=== PATIENT | female | born 1955 | race African-American/Black ===

== ENCOUNTER 2018-05-11 07:57 | Emergency (ER) | payer MEDICARE, OTHER ==
[~2018-05-11] VITALS: Ht 152.4 cm; Wt 59.0 kg
[2018-05-11 07:57] VITALS: BP 186/88
[~2018-05-11 07:57] MED LIST: ACET-6134 GT; ALUM360S96 GT; ALUM360S96 PO; ASPI325T49 PO; BACL10TA4 GT; BISA10SU1 RC; CHLOR MM; CHOL100037 GT; DOCU-299 GT; KEP500L GT; LACT10SO11 GT; LISI10TA11 GT; MAGN400S60 GT; MEDI30SO GT; METO25TA GT; MULT15LI1 GT; NA P135N9 RC; NITR0.4T2 SL; SIMV40TA1 GT; [UNRECOGNIZED DRUG - CODE] GT
--- NOTE | 2018-05-11 07:57 | NUR ---
patient came in by [facility]
[2018-05-11] MEDS ORDERED: NACL 0.9% 1,000 ML IV SCH (08:01)
[2018-05-11] MEDS ORDERED: diphenhydrAMINE 50 MG/ML VIAL IVP ONE (08:05)
[2018-05-11] MEDS ORDERED: DEXAMETHASONE 10 MG/ML VIAL IVP ONE (08:05)
--- NOTE | 2018-05-11 08:20 | NUR ---
PATIENT CAME IN BY [facility] SEIZURES. PATIENT DOES NOT RESOND WHEN SPOKEN TO. PT CAME FROM AN EXTENDED CARE FACILITY. PATIENTS LUNGS WERE CLEAR BILATERALLY. ABDOMEN SEEMED TO BE HARD AND DISTENDED. BOWL SOUNDS ARE ACTIVE IN ALL 4 QUADRANTS. PATIENT IS INCONTINENT AND WAS BROUGHT IN WEARING A DIAPER. PATIENT HAS CONTRACTIONS TO BOTH LEGS. PATEINT HAS A HISTORY OF HTN, DYSPHASIA, OSTEOPOROSIS, MS, CYSTIC KIDNEY DISEASE, G TUBE, OSTEOMYOELITIS, OK AND SEIZURES. PATIENT IS RESTING IN BED WITH EYES CLOSED. PT MOVES HER LEFT LEG FROM SIDE TO SIDE.
--- NOTE | 2018-05-11 08:21 | NUR ---
PATEINTS JACKIENE IS NON VERBAL COMMUNICATION AND DOES NOT ABULATE DUE TO HISTORY OF MUSCLE CONTRACTIONS. GTUBE WAS ASSESSED AND WAS CLEAN AND INTACT. NO REDNESS AND OR SWELLING TO SITE.
--- NOTE | 2018-05-11 08:25 | NUR ---
ASSESSED PATIENTS ASKIN AND NO SIGN OF BED ULCERS/ DECUBITIS NO REDNESS OR SWELLING. SKIN INTACT
--- NOTE | 2018-05-11 08:35 | NUR ---
PT WENT TO CT
[2018-05-11 08:42] LABS: BASOPHILS % (AUTO) 0.3 % (0.0-2.0); EOSINOPHILS % (AUTO) 0.2 % (0.0-4.0); HEMATOCRIT 39.6 % (36-48); HEMOGLOBIN 13.2 g/dL (12.0-16.0); LYMPHOCYTES % (AUTO) 13.5 % (20.5-51.1); MEAN CORPUSCULAR HEMOGLOBIN 30 pg (27-31); MEAN CORPUSCULAR HGB CONC 34 g/dL (33-37); MEAN CORPUSCULAR VOLUME 89.4 fL (80-94); MONOCYTES # (AUTO) 0.2 K/uL (0.8-1.0); MONOCYTES % (AUTO) 2.6 % (1.7-9.3); NEUTROPHILS # (AUTO) 6.3 K/uL (1.8-7.7); NEUTROPHILS % (AUTO) 83.4 % (42.2-75.2); PLATELET COUNT (AUTO) 394 K/uL (140-450); RED BLOOD CELL COUNT(AUTO) 4.42 MIL/uL (4.20-5.40); RED CELL DISTRIBUTION WIDTH 13.2 % (11.6-13.7); WHITE BLOOD COUNT (AUTO) 7.6 K/uL (4.8-10.8)
[2018-05-11 08:53] LABS: ANION GAP 9.5 (8-16); CARBON DIOXIDE 30.6 mmol/L (21-32); CREATININE 0.7 mg/dL (0.6-1.3); POTASSIUM 3.1 mmol/L (3.5-5.1)
[2018-05-11 08:54] LABS: PROTHROMBIN TIME 11.8 secs (10.8-13.4)
[2018-05-11 08:59] LABS: ALBUMIN 2.7 g/dL (3.4-5.0); TOTAL BILIRUBIN 0.2 mg/dL (0.0-1.0)
--- NOTE | 2018-05-11 09:05 | NUR ---
PATIENT WAS STRAGHT CATH FOR A U/A SAMPLE. PATEINT TOLERATED WELL.
--- NOTE | 2018-05-11 10:19 | NUR ---
comfort measures were implemented. was turned and a pillow was put inbetween her legs for comfort. patient is resting
--- NOTE | 2018-05-11 10:21 | NUR ---
seizure pads were put up on both rails for safety precaution
[2018-05-11] MEDS ORDERED: POTASSIUM CHL 20 MEQ / DEXT 5% 1,000 ML IV ONE (10:30)
[2018-05-11] MEDS ORDERED: MAG SULF 2000 MG/WATER PREMIX 50 ML IV ONE (10:30)
[2018-05-11 10:49] LABS: APPEARANCE,URINE TURBID (CLEAR); BILIRUBIN,URINE NEGATIVE (NEGATIVE); COLOR,URINE YELLOW (YELLOW); LEUKOCYTE ESTERASE ,URINE 3+ (NEGATIVE); NITRITE, URINE NEGATIVE (NEGATIVE); PH,URINE >=9.0 (5.0-9.0); UGLUCOSE NEGATIVE (NEGATIVE)
[2018-05-11 10:52] LABS: BLOOD, URINE 1+ (NEGATIVE); RBC,URINE 3-10 (FEW) /HPF (0-5)
[2018-05-11 10:53] LABS: WBC,URINE 20-60 /HPF (0-5)
[2018-05-11 10:54] LABS: CALCIUM OXALATE CRYSTALS,UR 0-10 /HPF (None Seen)
--- NOTE | 2018-05-11 11:37 | NUR ---
STARTED MAG. PATIENT IS SLEEPING. VITALS ARE WITHIN BASELINE AND PT IS NONVERBAL WHEN EXPLAINED PROCEDURE AND MEDICATION.
[2018-05-11] MEDS ORDERED: levETIRAcetam 100 MG/ML ORASYR GT SCH (12:00)
[2018-05-11] MEDS ORDERED: POTASSIUM CHLORIDE 10 MEQ TABER PO ONE (12:00)
[2018-05-11] MEDS ORDERED: PHENYTOIN 100 MG CAPER PO ONE (12:05)
--- NOTE | 2018-05-11 14:27 | NUR ---
PATIENT CAME IN WITH COMPLAIN OF CHEST PAIN AND ITCHING DUE TO RASH ALL OVER BODY. PATIENT HAS HAD PAIN TO CHEST FOR 4 DAYS. PATIENT STATED THAT HE ATE RAW FISH 4 DAYS AGO. THE PAIN IS LOCALIZED TO THE EPIGASTRIC REGION AND IS NON RADIATING. PATIENT JORGE NO ALLERGIES AND NO PRIOR MEDICAL HISTORY. THE PATIENT DISCRIBES HIS PAIN ASDULL AND BURNING SENSATION. LUNG SOUNDS ARE NORMAL AND CLEAR BILATERALLY. PATEINT SPEAKS LITTLE ARMENIAN. HIS PRIMARY LANGUAGE IS Divvyshot. PATIENT IS SITTING IN BED CALM WITH HIS FAMILYAT BED SIDE. PA WAS ABLE TO TRANSLATE.
--- NOTE | 2018-05-11 15:39 | NUR ---
PATIENT OPENED HER EYES WHILE I WAS SPEAKING TO HER. TURNED HER. SKIN IS INTACT AND NO REDNESS UPON ASSESSMENT.
[2018-05-11 18:46] VITALS: BP 134/80
--- NOTE | 2018-05-11 18:48 | NUR ---
Patient discharged with v/s stable. Written and verbal after care instructions given and explained. Patient verbalized understanding. Ambulance Transport with to long-term. All questions addressed prior to discharge. Advised to follow up with PMD.Gave report to the admition nurse at the nursing facility.
== END 2018-05-11 14:30 | disposition home or self-care (01) ==
LOC: MED 07:57
DX: R56.9 Unspecified convulsions (principal); E86.0 Dehydration; G35 Multiple sclerosis; Z66 Do not resuscitate; I25.2 Old myocardial infarction; I10 Essential (primary) hypertension; Z86.73 Personal history of transient ischemic attack (TIA), and cerebral infarction without residual deficits
CPT/HCPCS: 36415; 70450; 71045; 80053; 80173; 80185; 81001; 82550; 83605; 83735; 84484; 85025; 85610; 85730; 87040; 87086; 87186; 93005; 96361; 96374; 96375; 99285; J1100; J1200; J3475; J7030; Q0092

== ENCOUNTER 2018-06-01 21:06 | Emergency (ER) | payer MEDICARE, OTHER ==
[~2018-06-01] VITALS: Ht 167.6 cm; Wt 77.1 kg
[2018-06-01 21:06] VITALS: BP 182/110
--- NOTE | 2018-06-01 21:06 | NUR ---
Patient BIBA ACLS from [facility], transferred to bed 12. RN evaluating patient at bedside.
--- NOTE | 2018-06-01 21:14 | NUR ---
63/F BIBA FROM [facility]. PER EMS, PT HAD FOCAL SEIZURE, MOSTLY FACE AND L ARM. ATIVAN 2MG IM GIVEN PER FACILITY. PT IS AWAKE, RESPONSIVE, APHASIC, BEDBOUND WITH CONTRACTURES AT BASELINE. PT ABLE TO OPEN EYES TO PAIN, APHASIC, BEDBOUND WITH CONTRACTURES AT THIS TIME. SKIN IS INTACT, PINK/WARM/DRY; SPO2 100% ON 10L NONREBREATHER AT THIS TIME, RR 24 EVEN AND UNLABORED. BL LUNG SOUNDS DIMINISHED. RECTAL TEMP 99.8 AT THIS TIME. BP 199/101, HR 100. GTUBE NOTED. PATIENT POSITIONED FOR COMFORT; SEIZURE PADS PLACED. PT PLACED ON MONITOR. HOB ELEVATED; BEDRAILS UP X2; BED DOWN. ER MD MADE AWARE.
[2018-06-01] MEDS ORDERED: ASPI81CT89 PEG (21:31)
[2018-06-01] MEDS ORDERED: LORA-476 IM (21:31)
[2018-06-01] MEDS ORDERED: KEP500L GT (21:31)
--- NOTE | 2018-06-01 21:43 | NUR ---
VS NOTED. SPO2 100% ON O2 2L NC, RR 22 EVEN AND UNLABORED, BP 179/95, HR 95.
[2018-06-01] MEDS ORDERED: levETIRAcetam 1,500 MG in NACL 0.9% 100 ML IV ONE (22:05)
[2018-06-01] MEDS ORDERED: levETIRAcetam 100 MG/ML VIAL IV ONE (22:08)
[2018-06-01 23:23] LABS: BASOPHILS % (AUTO) 0.2 % (0.0-2.0); EOSINOPHILS % (AUTO) 0.1 % (0.0-4.0); HEMOGLOBIN 13.7 g/dL (12.0-16.0); LYMPHOCYTES # (AUTO) 0.9 K/uL (2.5-16.5); LYMPHOCYTES % (AUTO) 11.7 % (20.5-51.1); MEAN CORPUSCULAR HEMOGLOBIN 30 pg (27-31); MEAN CORPUSCULAR HGB CONC 34 g/dL (33-37); MEAN CORPUSCULAR VOLUME 87.2 fL (80-94); MONOCYTES # (AUTO) 0.2 K/uL (0.8-1.0); MONOCYTES % (AUTO) 3.1 % (1.7-9.3); NEUTROPHILS # (AUTO) 6.8 K/uL (1.8-7.7); NEUTROPHILS % (AUTO) 84.9 % (42.2-75.2); PLATELET COUNT (AUTO) 275 K/uL (140-450); RED BLOOD CELL COUNT(AUTO) 4.58 MIL/uL (4.20-5.40); RED CELL DISTRIBUTION WIDTH 13.9 % (11.6-13.7); WHITE BLOOD COUNT (AUTO) 8.1 K/uL (4.8-10.8)
[2018-06-01 23:33] LABS: ANION GAP 11.7 (8-16); CARBON DIOXIDE 27.6 mmol/L (21-32); CREATININE 0.7 mg/dL (0.6-1.3); POTASSIUM 3.3 mmol/L (3.5-5.1)
[2018-06-01 23:40] LABS: TOTAL BILIRUBIN 0.2 mg/dL (0.0-1.0)
[2018-06-01 23:41] LABS: ALBUMIN 2.8 g/dL (3.4-5.0)
[2018-06-01 23:42] LABS: APPEARANCE,URINE CLOUDY (CLEAR); BILIRUBIN,URINE NEGATIVE (NEGATIVE); BLOOD, URINE NEGATIVE (NEGATIVE); COLOR,URINE YELLOW (YELLOW); LEUKOCYTE ESTERASE ,URINE TRACE (NEGATIVE); NITRITE, URINE NEGATIVE (NEGATIVE); UGLUCOSE NEGATIVE (NEGATIVE)
[2018-06-01 23:49] LABS: RBC,URINE 0-5 (RARE) /HPF (0-5)
[2018-06-01 23:50] LABS: TRIPLE PHOSPHATE CRYSTAL,UR 0-10 /HPF (None Seen); WBC,URINE 6-15 (FEW) /HPF (0-5)
--- NOTE | 2018-06-02 00:16 | NUR ---
PT SLEEPING COMFORTABLY, RR EVEN AND UNLABORED. ALL NEEDS MET AT THIS TIME.
[2018-06-02] MEDS ORDERED: cefTRIAXone 1,000 MG VIAL ONE (00:32)
[2018-06-02] MEDS ORDERED: PHENYTOIN 1,000 MG in NACL 0.9% 100 ML IV ONE (01:00)
[2018-06-02] MEDS ORDERED: PHENYTOIN 250 MG/5 ML VIAL IV ONE (01:05)
--- NOTE | 2018-06-02 02:12 | NUR ---
Patient to be transferred to [facility], room 337. Is being transferred due to SEIZURE. Receiving facility has accepting physician and available space. ER physician has signed transfer form. Patient or responsible libertarian has agreed to transfer and signed form. Patient belongings inventoried and will be sent with patient. Copy of nursing notes, lab reports, EKG, Physicians Orders and X-rays to be sent with patient. Report called to DEDE GIBBS at receiving facility. [facility] ambulance service at bedside.
--- NOTE | 2018-06-02 02:21 | NUR ---
PT PICKED UP BY [facility] TO [facility]. VSS, CONDITION STABLE.
[2018-06-02 02:23] VITALS: BP 133/62
[2018-06-02] MEDS ORDERED: levETIRAcetam 1,500 MG in NACL 0.9% 100 ML IV SCH (09:00)
== END 2018-06-02 02:21 | disposition short-term general hospital (02) ==
LOC: MED 21:06
DX: R56.9 Unspecified convulsions (principal); N39.0 Urinary tract infection, site not specified; I25.2 Old myocardial infarction; I10 Essential (primary) hypertension; Z86.73 Personal history of transient ischemic attack (TIA), and cerebral infarction without residual deficits
CPT/HCPCS: 36415; 71045; 80053; 80185; 81001; 85025; 87086; 96365; 96367; 99285; C1758; J0696; J1165; J1953; J7060

== ENCOUNTER 2019-06-19 00:17 | Emergency (ER) | payer MEDICARE, OTHER ==
[~2019-06-19] VITALS: Ht 157.5 cm; Wt 68.0 kg
[~2019-06-19 00:17] MED LIST changes: -ALUM360S96 GT; -ALUM360S96 PO; +ASPI-1718 PEG; -ASPI325T49 PO; +LORA-476 IM; -MEDI30SO GT; -NA P135N9 RC; -NITR0.4T2 SL
[2019-06-19 00:29] VITALS: BP 200/98
[2019-06-19] MEDS ORDERED: NACL 0.9% 500 ML IV SCH (00:36)
[2019-06-19 01:15] LABS: BASOPHILS % (AUTO) 0.2 % (0.0-2.0); EOSINOPHILS % (AUTO) 0.1 % (0.0-4.0); HEMATOCRIT 44.4 % (36-48); HEMOGLOBIN 14.9 g/dL (12.0-16.0); LYMPHOCYTES % (AUTO) 11.2 % (20.5-51.1); MEAN CORPUSCULAR HEMOGLOBIN 31 pg (27-31); MEAN CORPUSCULAR HGB CONC 34 g/dL (33-37); MONOCYTES # (AUTO) 0.5 K/uL (0.8-1.0); MONOCYTES % (AUTO) 5.6 % (1.7-9.3); NEUTROPHILS # (AUTO) 7.6 K/uL (1.8-7.7); NEUTROPHILS % (AUTO) 82.9 % (42.2-75.2); PLATELET COUNT (AUTO) 180 K/uL (140-450); RED BLOOD CELL COUNT(AUTO) 4.88 MIL/uL (4.20-5.40)
[2019-06-19 01:16] LABS: WHITE BLOOD COUNT (AUTO) 9.1 K/uL (4.8-10.8)
[2019-06-19 01:27] LABS: ANION GAP 9.9 (8-16); CARBON DIOXIDE 29.2 mmol/L (21-32); CREATININE 0.6 mg/dL (0.6-1.3); POTASSIUM 3.1 mmol/L (3.5-5.1)
[2019-06-19] MEDS ORDERED: POTASSIUM CHLORIDE 20% 40 MEQ/15 ML UDC PO ONE (01:30)
[2019-06-19 01:33] LABS: PROTHROMBIN TIME 10.7 secs (10.8-13.4)
[2019-06-19 01:34] LABS: ALBUMIN 3.1 g/dL (3.4-5.0); TOTAL BILIRUBIN 0.3 mg/dL (0.0-1.0)
[2019-06-19 01:38] LABS: APPEARANCE,URINE CLOUDY (CLEAR); BILIRUBIN,URINE NEGATIVE (NEGATIVE); BLOOD, URINE 1+ (NEGATIVE); COLOR,URINE YELLOW (YELLOW); LEUKOCYTE ESTERASE ,URINE 1+ (NEGATIVE); NITRITE, URINE POSITIVE (NEGATIVE); UGLUCOSE NEGATIVE (NEGATIVE)
[2019-06-19 01:51] LABS: WBC,URINE 20-60 /HPF (0-5)
[2019-06-19] MEDS ORDERED: PHENYTOIN 1,000 MG in NACL 0.9% 100 ML IV ONE (02:00)
[2019-06-19] MEDS ORDERED: LEVOFLOXACIN 500 MG/D5W PREMIX 100 ML IV ONE (02:00)
[2019-06-19] MEDS ORDERED: PHENYTOIN 250 MG/5 ML VIAL IV ONE (03:11)
[2019-06-19 06:00] VITALS: BP 152/66
== END 2019-06-19 06:30 ==
LOC: MED 00:17
DX: G40.909 Epilepsy, unspecified, not intractable, without status epilepticus (principal); N39.0 Urinary tract infection, site not specified; I25.2 Old myocardial infarction; I10 Essential (primary) hypertension; Z86.73 Personal history of transient ischemic attack (TIA), and cerebral infarction without residual deficits; Z79.82 Long term (current) use of aspirin; Z79.899 Other long term (current) drug therapy
CPT/HCPCS: 36415; 71045; 80053; 80185; 81001; 83605; 83880; 84484; 85025; 85610; 85730; 87040; 87086; 93005; 96365; 96368; 99284; J1165; J1956; J7030; Q0092; 96367

== ENCOUNTER 2019-10-24 14:46 | Emergency (ER) | payer MEDICARE, OTHER ==
[~2019-10-24] VITALS: Ht 152.4 cm; Wt 65.8 kg
[2019-10-24 14:46] VITALS: BP 153/80
--- NOTE | 2019-10-24 14:46 | NUR ---
Patient BIBA ALS accompanied by Odilia ARROYO, transferred to bed 10. RN evaluating patient at bedside.
--- NOTE | 2019-10-24 15:00 | NUR ---
Note undone in EDM - 10/24/19 at 1614 by MEDHR BIBA FROM [facility] [place] UNCEASING FOCAL SEIZURES, APPROX X 40MINS, WITH EPISODE OF TONIC-CLONIC SEIZURE 10MINS BLOCKMASON. PT WAS GIVEN TOTAL 4MG ATIVAN AT [facility] AND 2.5MG VERSED INTRANASAL. PATIENT STATES IS NON-VERBAL AT THIS TIME; VSS; PATIENT POSITIONED FOR COMFORT; HOB ELEVATED; BEDRAILS UP X2; BED DOWN. SEIZURE PADS PLACED. PT IS A&O X0. ER MADE AWARE OF PT STATUS.
--- NOTE | 2019-10-24 15:00 | NUR ---
Note undone in EDM - 10/24/19 at 1636 by MEDHR BIBA FROM 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 PT WAS GIVEN TOTAL 4MG ATIV[address] AT [facility] AND 2.5MG VERSED INTRANASAL. PATIENT STATES IS NON-VERBAL AT THIS TIME; VSS; PATIENT POSITIONED FOR COMFORT; HOB ELEVATED; BEDRAILS UP X2; BED DOWN. SEIZURE PADS PLACED. PT IS A&O X1. ER MADE AWARE OF PT STATUS.
--- NOTE | 2019-10-24 15:00 | NUR ---
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 PT WAS GIVEN TOTAL 4MG ATIVAN AT [facility] AND 2.5MG VERSED INTRANASAL. PATIENT IS NON-VERBAL AT THIS TIME; FOCAL SEIZURES INCLUDING FACIAL AND LEFT EXTREMETIES SEIZURES NOTICED. VSS WITH GCS 7; PATIENT POSITIONED FOR COMFORT; HOB ELEVATED; BEDRAILS UP X2; BED DOWN. SEIZURE PADS PLACED. ER MD MADE AWARE OF PT STATUS.
--- NOTE | 2019-10-24 15:02 | NUR ---
Dr. Goodwin is evaluating the patient at bedside.
[2019-10-24] MEDS ORDERED: NACL 0.9% 500 ML IV SCH (15:09)
--- NOTE | 2019-10-24 15:40 | NUR ---
Several IV attempts made to insert IV and was unsuccessful. Dr. Goodwin at the bedside assisting label sewer in drawing blood for lab tests. Dr. Goodwin aware of no IV access and ordered for central line insertion.
--- NOTE | 2019-10-24 15:46 | NUR ---
Dr. Goodwin is inserting a central line.
--- NOTE | 2019-10-24 16:03 | NUR ---
DR ROWE WITH SUCCESSFUL INSERTION OF R SUBCLAVIAN 3 LUMEN, WITH NO COMPLICATIONS, VSS THROUGHOUT PROCEDURE. REMAINING BLOOD WORK DRAWN VIA CENTRAL LINE.
--- NOTE | 2019-10-24 16:05 | NUR ---
diet technician registered at bedside.
[2019-10-24 16:25] LABS: ANION GAP 12.4 (8-16); CARBON DIOXIDE 28.8 mmol/L (21-32); CREATININE 0.5 mg/dL (0.6-1.3); POTASSIUM 4.2 mmol/L (3.5-5.1)
[2019-10-24 16:28] LABS: BASOPHILS % (AUTO) 0.1 % (0.0-2.0); EOSINOPHILS % (AUTO) 0.3 % (0.0-4.0); HEMATOCRIT 43.6 % (36-48); HEMOGLOBIN 14.5 g/dL (12.0-16.0); LYMPHOCYTES # (AUTO) 1.1 K/uL (2.5-16.5); MEAN CORPUSCULAR HEMOGLOBIN 31 pg (27-31); MEAN CORPUSCULAR HGB CONC 33 g/dL (33-37); MONOCYTES # (AUTO) 0.5 K/uL (0.8-1.0); MONOCYTES % (AUTO) 5.9 % (1.7-9.3); NEUTROPHILS # (AUTO) 6.8 K/uL (1.8-7.7); NEUTROPHILS % (AUTO) 80.7 % (42.2-75.2); PLATELET COUNT (AUTO) 222 K/uL (140-450); RED BLOOD CELL COUNT(AUTO) 4.64 MIL/uL (4.20-5.40); RED CELL DISTRIBUTION WIDTH 12.6 % (11.6-13.7); WHITE BLOOD COUNT (AUTO) 8.4 K/uL (4.8-10.8)
[2019-10-24 16:30] LABS: ALBUMIN 3.1 g/dL (3.4-5.0); TOTAL BILIRUBIN 0.2 mg/dL (0.0-1.0)
--- NOTE | 2019-10-24 17:02 | NUR ---
PT IS SLEEPING IN BED WITH VSS. NO SEIZURE NOTICED AT THIS TIME.
[2019-10-24 17:05] LABS: BILIRUBIN,URINE NEGATIVE (NEGATIVE); BLOOD, URINE NEGATIVE (NEGATIVE); LEUKOCYTE ESTERASE ,URINE TRACE (NEGATIVE); NITRITE, URINE POSITIVE (NEGATIVE); UGLUCOSE NEGATIVE (NEGATIVE)
[2019-10-24 17:06] LABS: APPEARANCE,URINE CLOUDY (CLEAR); COLOR,URINE YELLOW (YELLOW); RBC,URINE NONE SEEN /HPF (0-5)
[2019-10-24] MEDS ORDERED: LEVOFLOXACIN 500 MG/D5W PREMIX 100 ML IV ONE (17:10)
--- NOTE | 2019-10-24 18:01 | NUR ---
CALLED PT'S BROTHER AMINATA PLUNKETT FOR THE UPDATE THAT PT HAS UTI AND TREATED WITH LEVAQUIN IV.
--- NOTE | 2019-10-24 18:17 | NUR ---
Patient to be transferred to [facility]. Is being transferred due to breakthrough seizure. Receiving facility has accepting physician and available space. ER physician has signed transfer form. Patient or responsible alliance party has agreed to transfer and signed form. Patient belongings inventoried and will be sent with patient. Copy of nursing notes, lab reports, EKG, Physicians Orders and X-rays to be sent with patient. Report called to Joe at receiving facility. [facility] ambulance service has been called for transfer. ETA is 45 mins.
--- NOTE | 2019-10-24 18:24 | NUR ---
SPOKE TO PT'S BROTHER AMINATA DELGADO VIA PHONE AND NOTIFIED HIM THAT PT IS GOING TO BE TRANSFERED TO [facility].
[2019-10-24 18:46] VITALS: BP 127/46
[2019-10-24] MEDS ORDERED: ACETAMINOPHEN EXTRA STRENGTH 500 MG TAB GT ONE (19:10)
--- NOTE | 2019-10-24 19:10 | NUR ---
RECEIVED REPORT FROM DEDE OLSEN. ASSUME CARE AT THIS TIME, PATIENT STABLE, NONVERBAL, ON NASAL CANNULA 2L, SEIZURE PRECAUTIONS IN PLACE. WILL CONTINUE TO MONITOR.
--- NOTE | 2019-10-24 19:10 | NUR ---
Pt report given to DEDE Escalante. Transfer of care at this time.
[2019-10-24] MEDS ORDERED: ACETAMINOPHEN 160 MG/5 ML UDC ONE (19:11)
[2019-10-24] MEDS ORDERED: ACETAMINOPHEN EXTRA STRENGTH 500 MG TAB ONE (19:13)
--- NOTE | 2019-10-24 19:25 | NUR ---
TRANSPORT AT BEDSIDE.
--- NOTE | 2019-10-24 19:35 | NUR ---
Patient discharged with v/s stable. Ambulance Transport to [facility]. Paperwork provided to transport team. Follow up call to receiving nurse attempted with no answer.
== END 2019-10-24 19:35 | disposition short-term general hospital (02) ==
LOC: MED 14:46
DX: G40.89 Other seizures (principal); I10 Essential (primary) hypertension; Z79.899 Other long term (current) drug therapy; Z79.82 Long term (current) use of aspirin; I25.2 Old myocardial infarction; E78.00 Pure hypercholesterolemia, unspecified
CPT/HCPCS: 36415; 36556; 71045; 80053; 80185; 81001; 83605; 83880; 84484; 85025; 85610; 85730; 87040; 87086; 93005; 96365; 99285; J1956; Q0092; J7030

== ENCOUNTER 2020-01-27 13:00 | Emergency (ER) | payer MEDICARE, OTHER ==
[~2020-01-27] VITALS: Ht 167.6 cm; Wt 63.5 kg
[~2020-01-27 13:00] MED LIST changes: -ASPI-1718 PEG; +ASPI-1822 PEG
--- NOTE | 2020-01-27 13:00 | NUR ---
Patient BIBA ALS from [facility] [place], transferred to bed 3. RN evaluating patient at bedside.
[2020-01-27 13:05] VITALS: BP 150/77
--- NOTE | 2020-01-27 13:05 | NUR ---
64/F BIBA FROM [facility] FOR MULTIPLE FOCAL SEIZURES 20MINS AGO, DESCRIBED TWITCHING OF EYES, LIPS AND FACE ONLY (APPROX 2MINS EACH). 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 PT REMAINS STUPOROUS, RESPONSIVE TO PAIN, GCS 6 ([id number]), PERRL 3MM, SKIN NORMAL COLOR WARM AND DRY, RR EVEN AND UNLABORED. LUNG SOUNDS CLEAR BL. S1S2 PRESENT. BS ACTIVE X4, ABD SOFT ROUND NONTENDER, GTUBE NOTED. NO BLE EDEMA. HX MS, SZ, HTN, GTUBE, NH, RECURRENT UTI RX KEPPRA (LAST DOSE THIS AM)
--- NOTE | 2020-01-27 13:40 | NUR ---
DR AGUILAR ASSESSING PT AT BEDSIDE
[2020-01-27] MEDS ORDERED: NACL 0.9% 1,000 ML IV ONE (13:50)
[2020-01-27] MEDS ORDERED: levETIRAcetam 500 MG in NACL 0.9% 100 ML IV ONE (13:50)
[2020-01-27 14:17] LABS: APPEARANCE,URINE CLOUDY (CLEAR); BILIRUBIN,URINE NEGATIVE (NEGATIVE); BLOOD, URINE 1+ (NEGATIVE); LEUKOCYTE ESTERASE ,URINE 1+ (NEGATIVE); NITRITE, URINE NEGATIVE (NEGATIVE); PH,URINE 7.5 (5.0-9.0); UGLUCOSE NEGATIVE (NEGATIVE)
--- NOTE | 2020-01-27 14:24 | NUR ---
URINE SAMPLE VIA STRAIGHT CATH HANDED TO PROJECT MANAGER
--- NOTE | 2020-01-27 14:26 | NUR ---
CALLED LAB AND ASKED LANDING SIGNAL OFFICER TO COME DRAW BLOOD, WAS UNABLE TO DRAW FROM IV
[2020-01-27 14:31] LABS: RBC,URINE 11-20 (MOD) /HPF (0-5); WBC,URINE 80-100 /HPF (0-5)
[2020-01-27 14:32] LABS: COLOR,URINE AMBER (YELLOW)
[2020-01-27] MEDS ORDERED: levETIRAcetam 100 MG/ML VIAL IV ONE (14:36)
--- NOTE | 2020-01-27 14:45 | NUR ---
MANAGER PHARMACEUTICAL AT BEDSIDE
[2020-01-27] MEDS ORDERED: cefTRIAXone 1,000 MG VIAL ONE (15:24)
[2020-01-27 15:27] LABS: ALBUMIN 2.8 g/dL (3.4-5.0); CREATININE 0.6 mg/dL (0.6-1.3); TOTAL BILIRUBIN 0.2 mg/dL (0.0-1.0)
--- NOTE | 2020-01-27 15:56 | NUR ---
PATIENT RESTING IN BED NO SIGNS OF DISTRESS, WILL CONTINUE TO MONITOR.
[2020-01-27 16:43] LABS: BASOPHILS % (AUTO) 0.1 % (0.0-2.0); EOSINOPHILS % (AUTO) 0.2 % (0.0-4.0); HEMATOCRIT 41.7 % (36-48); HEMOGLOBIN 14.3 g/dL (12.0-16.0); LYMPHOCYTES # (AUTO) 0.8 K/uL (2.5-16.5); LYMPHOCYTES % (AUTO) 12.6 % (20.5-51.1); MEAN CORPUSCULAR HEMOGLOBIN 30 pg (27-31); MEAN CORPUSCULAR HGB CONC 34 g/dL (33-37); MEAN CORPUSCULAR VOLUME 88.6 fL (80-94); MONOCYTES # (AUTO) 0.2 K/uL (0.8-1.0); MONOCYTES % (AUTO) 3.9 % (1.7-9.3); NEUTROPHILS # (AUTO) 5.3 K/uL (1.8-7.7); NEUTROPHILS % (AUTO) 83.2 % (42.2-75.2); PLATELET COUNT (AUTO) 261 K/uL (140-450); RED BLOOD CELL COUNT(AUTO) 4.71 MIL/uL (4.20-5.40); RED CELL DISTRIBUTION WIDTH 12.4 % (11.6-13.7); WHITE BLOOD COUNT (AUTO) 6.4 K/uL (4.8-10.8)
--- NOTE | 2020-01-27 17:46 | NUR ---
REPORT GIVEN TO MEL/RN AT [facility]
--- NOTE | 2020-01-27 17:59 | NUR ---
[facility] at bedside for transport to [facility].
--- NOTE | 2020-01-27 18:00 | NUR ---
REPORT TO [facility] TRANSPORTER. PT IN STABLE CONDITION. VSS.
[2020-01-27 18:58] VITALS: BP 119/62
== END 2020-01-27 18:08 | disposition short-term general hospital (02) ==
LOC: MED 13:00
DX: N39.0 Urinary tract infection, site not specified (principal); G40.909 Epilepsy, unspecified, not intractable, without status epilepticus; I25.2 Old myocardial infarction; I10 Essential (primary) hypertension; Z86.73 Personal history of transient ischemic attack (TIA), and cerebral infarction without residual deficits; F03.90 Unspecified dementia, unspecified severity, without behavioral disturbance, psychotic disturbance, mood disturbance, and anxiety; Z98.890 Other specified postprocedural states; Z79.899 Other long term (current) drug therapy; Z79.82 Long term (current) use of aspirin
CPT/HCPCS: 36415; 71045; 80053; 81001; 85025; 87040; 87086; 96365; 96367; 99285; C1758; J0696; J1953; J7030; J7060; Q0092

== ENCOUNTER 2021-11-17 06:05 | Emergency (ER) | payer MEDICARE, OTHER ==
[~2021-11-17] VITALS: Ht 157.5 cm; Wt 70.3 kg
[2021-11-17 06:05] VITALS: BP 170/101
[~2021-11-17 06:05] MED LIST changes: +ACET-10509 GT; -ACET-6134 GT; +LISI-486 GT; -LISI10TA11 GT
--- NOTE | 2021-11-17 06:22 | NUR ---
PT BIBA TO ER BED 02
--- NOTE | 2021-11-17 07:20 | NUR ---
66 YO F [place] [facility] [place]C OF GTUBE DISPLACEMENT SINCE 9PM. EMS REPORTS F/C IN PLACE TO KEEP GTUBE SITE OPEN. GTUBE SIZE IS 18F. PT PRESENTS AWAKE AT BASELINE; NON-VERBAL. BED LOCKED IN LOWEST POSITION, SIDE RAILS X 1, SEIZURE PRECAUTIONS IN PLACE. HX:SEIZURES, HTN, NONVERB, CONTRACTURES, ID NKA
--- NOTE | 2021-11-17 07:35 | NUR ---
RAD at bedside
--- NOTE | 2021-11-17 07:40 | NUR ---
4x4 Split gauze applied to G-tube site, secured with tape on 4 sides.
--- NOTE | 2021-11-17 09:36 | NUR ---
RECEIVED CALL FROM OWEN FROM [facility]. STATED WILL CALL BACK WITH [facility] FOR TRANSPORTATION.
[2021-11-17 10:20] VITALS: BP 166/86
--- NOTE | 2021-11-17 10:22 | NUR ---
[facility] at bedside
--- NOTE | 2021-11-17 10:31 | NUR ---
Patient discharged with v/s stable. Written and verbal after care instructions given and explained. Patient verbalized understanding. [facility] with to shelter. All questions addressed prior to discharge. Advised to follow up with PMD.
== END 2021-11-17 10:31 ==
LOC: MED 06:05
DX: K94.23 Gastrostomy malfunction (principal); F03.90 Unspecified dementia, unspecified severity, without behavioral disturbance, psychotic disturbance, mood disturbance, and anxiety; I10 Essential (primary) hypertension; I25.2 Old myocardial infarction; Z98.890 Other specified postprocedural states; Z86.73 Personal history of transient ischemic attack (TIA), and cerebral infarction without residual deficits; Z79.899 Other long term (current) drug therapy
CPT/HCPCS: 43762; 99284

== ENCOUNTER 2022-03-18 13:07 | Emergency (ER) | payer MEDICARE, OTHER ==
[~2022-03-18] VITALS: Ht 167.6 cm; Wt 83.9 kg
--- NOTE | 2022-03-18 13:07 | NUR ---
[facility] TO ER BED 9
[2022-03-18 13:19] VITALS: BP 174/81
--- NOTE | 2022-03-18 13:28 | NUR ---
PT [facility]IB [facility] FROM [facility]CE YESTERDAY. PT HAD WITNESSED SEIZURE BY STAFF YESTERDAY. PT NORMALLY RESPONSIVE TO PAIN NON VERBAL AND BASELINE. PT GCS 7, BREATHING UNLABORED. SEIZURE PRECAUTIONS INITIATED. NAD. SAFETY MAINTAINED.
--- NOTE | 2022-03-18 13:43 | NUR ---
[id number] BROTHER AMINATA DELGADO CALLED CONTACT # [phone]
[2022-03-18] MEDS ORDERED: NACL 0.9% 1,000 ML IV ONE (13:45)
--- NOTE | 2022-03-18 14:33 | NUR ---
LAB AT BEDSIDE
[2022-03-18 14:50] LABS: BASOPHILS % (AUTO) 0.3 % (0.0-2.0); EOSINOPHILS % (AUTO) 0.4 % (0.0-4.0); HEMATOCRIT 42.6 % (36-48); HEMOGLOBIN 13.6 g/dL (12.0-16.0); LYMPHOCYTES # (AUTO) 2.1 K/uL (2.5-16.5); LYMPHOCYTES % (AUTO) 31.9 % (20.5-51.1); MEAN CORPUSCULAR HEMOGLOBIN 28 pg (27-31); MEAN CORPUSCULAR HGB CONC 32 g/dL (33-37); MEAN CORPUSCULAR VOLUME 87.2 fL (80-94); MONOCYTES # (AUTO) 0.6 K/uL (0.8-1.0); MONOCYTES % (AUTO) 9.7 % (1.7-9.3); NEUTROPHILS # (AUTO) 3.8 K/uL (1.8-7.7); NEUTROPHILS % (AUTO) 57.7 % (42.2-75.2); PLATELET COUNT (AUTO) 239 K/uL (140-450); RED BLOOD CELL COUNT(AUTO) 4.88 MIL/uL (4.20-5.40); WHITE BLOOD COUNT (AUTO) 6.6 K/uL (4.8-10.8)
[2022-03-18 15:25] LABS: LIPASE 752 U/L (73-393)
[2022-03-18 15:38] LABS: ALBUMIN 2.5 g/dL (3.4-5.0); ANION GAP 14.6 (8-16); CARBON DIOXIDE 22.7 mmol/L (21-32); CREATININE 0.6 mg/dL (0.6-1.3); POTASSIUM 4.3 mmol/L (3.5-5.1); TOTAL BILIRUBIN 0.3 mg/dL (0.0-1.0)
[2022-03-18 15:56] LABS: BILIRUBIN,URINE NEGATIVE (NEGATIVE); BLOOD, URINE 2+ (NEGATIVE); COLOR,URINE YELLOW (YELLOW); LEUKOCYTE ESTERASE ,URINE 2+ (NEGATIVE); NITRITE, URINE POSITIVE (NEGATIVE); PH,URINE 7.5 (5.0-9.0); UGLUCOSE NEGATIVE (NEGATIVE)
[2022-03-18 15:57] LABS: APPEARANCE,URINE CLOUDY (CLEAR)
--- NOTE | 2022-03-18 16:00 | NUR ---
pt resting in [place] no changes noted. pending dispo. nad. safety maintained.
[2022-03-18 16:27] LABS: RBC,URINE 11-20 (MOD) /HPF (0-5)
[2022-03-18] MEDS ORDERED: cefTRIAXone 1,000 MG VIAL ONE (17:03)
--- NOTE | 2022-03-18 18:49 | NUR ---
pt turned and repositioned pending results. no changes noted
--- NOTE | 2022-03-18 19:18 | NUR ---
REPORT RECEIVED FROM DEDE SALDIVAR. CONTINUITY OF PT CARE AT THIS TIME.
--- NOTE | 2022-03-18 19:31 | NUR ---
PT LAYING IN BED LOCKED IN LOWEST POSITION W X2 SIDERAILS UP FOR PT SAFETY. PT AWAKE, LOOKING AROUND, NON-VERBAL PER BASELINE, GCS 7. JOHNSON CATH DRAINING TO GRAVITY W 400CC CURRENT URINE OUTPUT. SEIZURE PRECAUTIONS IN PLACE. BREATHING EVEN AND UNLABORED. PT CONNECTED TO MONITOR, WILL CONTINUE TO MONITOR.
[2022-03-18] MEDS ORDERED: AZITHROMYCIN 1,000 MG in DEXTROSE 5% 500 ML IV ONE (21:40)
[2022-03-18] MEDS ORDERED: AZITHROMYCIN 500 MG INJ VIAL IV ONE (22:05)
--- NOTE | 2022-03-18 22:07 | NUR ---
DOMITILA NORRIS LVN FROM [facility] VERIFIED NO OTHER CONCERNS FOR PT OTHER THAN THE ALOC/ AND SEIZURE EPISODE. ERMD AWARE.
--- NOTE | 2022-03-18 22:25 | NUR ---
PT BP 180/70 ERMD MADE AWARE.
[2022-03-18] MEDS ORDERED: METOPROLOL SUCCINATE 50 MG TABER PO ONE (22:35)
[2022-03-18] MEDS ORDERED: lisinopriL 20 MG TAB GT ONE (22:35)
[2022-03-18] MEDS ORDERED: AZIT250T3 PO (22:48)
[2022-03-18] MEDS ORDERED: CEPH-588 PO (22:48)
--- NOTE | 2022-03-18 23:07 | NUR ---
PER VAN JES TO ADMINMETOPROLOL GT NOT PO ROUTE.
[2022-03-18] MEDS ORDERED: CRUSHER, PILL MC ONE (23:09)
--- NOTE | 2022-03-18 23:30 | NUR ---
PER BLACK BOX WARNING NOT TO CRUSH METOPROLOL, ERMD MADE AWARE. PER VAN NOT TO ADMIN METOPROLOL. Addendum: 03/19/22 at 0327 by MEDJULIEN MEDICATION PROPERLY DISPOSED.
--- NOTE | 2022-03-19 00:42 | NUR ---
PT LAYING IN BED LOCKED IN LOWEST POSITION. BP IMPROVED. OTHERWISE NO CHANGE ON PT STATUS. BREATHIN EVEN AND UNLABORED. WILL CONTINUE TO MONITOR. AWAITING TRANSPORTATION BACK TO [facility].
--- NOTE | 2022-03-19 01:10 | NUR ---
SPOKE Vikas SPARKS LVN FROM [facility] TO PROVIDE UPDATE ON PT TRANSPORTATION BACK TO [facility] ETA 0300.
--- NOTE | 2022-03-19 02:59 | NUR ---
Patient appears to be resting comfortably in bed. Vital Signs within normal limits. Respirations even and unlabored.
--- NOTE | 2022-03-19 03:34 | NUR ---
PT BP 188/94. VAN MADE AWARE.
[2022-03-19] MEDS ORDERED: ENALAPRILAT 2.5 MG/2 ML VIAL IVP ONE ×2 (03:35→05:50)
--- NOTE | 2022-03-19 04:24 | NUR ---
SPOKE W DEDE REEVES DIGITAL PROJECT COORDINATOR GURU TO PT DISCHARG/TRANSFER. PER DEDE REEVES PT CANNOT BE ACCEPTED BACK AT [facility] D/T BEING COVID +. ERMD AWARE. PER EDDE REEVES TO CALL BACK [facility] AT 0800 WHEN ADMINISTRATIONS IS OPEN.
--- NOTE | 2022-03-19 05:25 | NUR ---
PT LAYING IN BED LOCKED IN LOWEST POSITION. CONNECTED TO MONITOR. BREATHIN EVEN AND UNLABORED. WILL CONTINUE TO MONITOR.
--- NOTE | 2022-03-19 05:59 | NUR ---
PT MOVED TO BED 01 FOR ISOLATION PRECAUTIONS.
--- NOTE | 2022-03-19 07:16 | NUR ---
Pt report given to DEDE COBURN. Transfer of care at this time.
--- NOTE | 2022-03-19 07:49 | NUR ---
CALLED AND SPOKE TO PT BROTHER AMINATA, WAS GIVEN CONSENT TO TRANSFER PATIENT TO [facility] FOR ADMIT. 2ND NURSE WITNESS FOR PHONE CONSENT DONE. TRANSPORTATION ETA [id number]
--- NOTE | 2022-03-19 07:55 | NUR ---
REPORT GIVEN TO JEREMIAS AT [facility]. [facility] AT BEDSIDE TO TRANSPORT PATIENT.
[2022-03-19 08:09] VITALS: BP 172/87
--- NOTE | 2022-03-19 08:14 | NUR ---
Patient to be transferred to [facility]. Is being transferred due to UTI/PNA/SEIZURE. Receiving facility has accepting physician and available space. ER physician has signed transfer form. Patient or responsible republican has agreed to transfer and signed form. Patient belongings inventoried and will be sent with patient. Copy of nursing notes, lab reports, EKG, Physicians Orders and X-rays to be sent with patient. Report called to JEREMIAS at receiving facility. [facility] ambulance service has been called for transfer. ETA is 15 MIN.
== END 2022-03-19 08:14 | disposition short-term general hospital (02) ==
LOC: MED 13:07
DX: U07.1 COVID-19 (principal); J12.82 Pneumonia due to coronavirus disease 2019; N39.0 Urinary tract infection, site not specified; R56.9 Unspecified convulsions; I25.2 Old myocardial infarction; I25.10 Atherosclerotic heart disease of native coronary artery without angina pectoris; I10 Essential (primary) hypertension; F03.90 Unspecified dementia, unspecified severity, without behavioral disturbance, psychotic disturbance, mood disturbance, and anxiety; Z87.448 Personal history of other diseases of urinary system; Z98.890 Other specified postprocedural states; Z79.2 Long term (current) use of antibiotics; Z79.82 Long term (current) use of aspirin; Z79.899 Other long term (current) drug therapy; E11.9 Type 2 diabetes mellitus without complications
CPT/HCPCS: 36415; 70450; 71045; 80053; 80185; 81001; 83605; 83690; 83880; 84484; 85025; 87040; 87086; 87426; 93005; 96361; 96365; 96366; 96367; 96375; 96376; 99285; J0456; J0696; J3490; J7030

== ENCOUNTER 2022-12-10 00:30 | Emergency (ER) | payer MEDICARE, OTHER ==
[~2022-12-10] VITALS: Ht 162.6 cm; Wt 68.0 kg
[~2022-12-10 00:30] MED LIST changes: +AZIT250T3 PO; +CEPH-588 PO
--- NOTE | 2022-12-10 00:34 | NUR ---
BIBA TO BED #10
[2022-12-10 00:35] VITALS: BP 152/84
[2022-12-10] MEDS ORDERED: PIPERACILLIN/TAZOBACTAM 3.375 GM in DEXT 5% MINI-BAG PLUS 50 ML IV ONE (01:00)
--- NOTE | 2022-12-10 01:13 | NUR ---
LAB AT BEDSIDE FOR BLOOD DRAW
[2022-12-10] MEDS ORDERED: PIPERACILLIN/TAZOBACTAM 3.375 GM VIAL IV ONE (01:44)
[2022-12-10] MEDS ORDERED: ACETAMINOPHEN 325 MG SUPP RC ONE (01:44)
[2022-12-10] MEDS: NACL 0.9% 2,000 ML IV SCH ×2 (01:49→10:22)
[2022-12-10 01:55] LABS: BASOPHILS # (AUTO) 0.1 K/uL (0.00-0.22); EOSINOPHILS % (AUTO) 0.1 % (0.0-4.0); HEMATOCRIT 44.3 % (36-48); HEMOGLOBIN 14.2 g/dL (12.0-16.0); LYMPHOCYTES # (AUTO) 1.4 K/uL (2.5-16.5); LYMPHOCYTES % (AUTO) 19.2 % (20.5-51.1); MEAN CORPUSCULAR HEMOGLOBIN 29 pg (27-31); MEAN CORPUSCULAR HGB CONC 32 g/dL (33-37); MEAN CORPUSCULAR VOLUME 90.2 fL (80-94); MONOCYTES # (AUTO) 0.8 K/uL (0.8-1.0); MONOCYTES % (AUTO) 11.5 % (1.7-9.3); NEUTROPHILS % (AUTO) 68.2 % (42.2-75.2); PLATELET COUNT (AUTO) 313 K/uL (140-450); RED BLOOD CELL COUNT(AUTO) 4.91 MIL/uL (4.20-5.40); WHITE BLOOD COUNT (AUTO) 7.3 K/uL (4.8-10.8)
[2022-12-10] MEDS ORDERED: ACETAMINOPHEN 650 MG SUPP RC ONE ×2 (01:55→10:05)
[2022-12-10 02:09] LABS: CARBON DIOXIDE 29.2 mmol/L (21-32); CREATININE 0.9 mg/dL (0.6-1.3); POTASSIUM 4.2 mmol/L (3.5-5.1); TOTAL BILIRUBIN 0.4 mg/dL (0.0-1.0)
[2022-12-10 02:48] LABS: APPEARANCE,URINE CLOUDY (CLEAR); BILIRUBIN,URINE NEGATIVE (NEGATIVE); BLOOD, URINE NEGATIVE (NEGATIVE); COLOR,URINE YELLOW (YELLOW); LEUKOCYTE ESTERASE ,URINE NEGATIVE (NEGATIVE); NITRITE, URINE NEGATIVE (NEGATIVE); PH,URINE 5.5 (5.0-9.0); UGLUCOSE NEGATIVE (NEGATIVE)
--- NOTE | 2022-12-10 03:22 | NUR ---
PT TO CT VIA INDIRA
--- NOTE | 2022-12-10 04:15 | NUR ---
PT MOVED TO BED 12. AWAITING EASLEY. S
[2022-12-10] MEDS ORDERED: VANCOMYCIN 1GM/DEXT 5% PREMIX 200 ML IV ONE (06:10)
[2022-12-10] MEDS ORDERED: VANCOMYCIN PER PHARMACY MC PRN (06:10)
--- NOTE | 2022-12-10 07:15 | NUR ---
REPORT GIVEN TO MEENA AGUAYO
[2022-12-10] MEDS ORDERED: ACETAMINOPHEN EXTRA STRENGTH 500 MG TAB GT ONE (07:40)
[2022-12-10] MEDS ORDERED: IBUPROFEN CHILDRENS 100 MG/5 ML UDC GT ONE (07:40)
[2022-12-10] MEDS ORDERED: CRUSHER, PILL MC ONE (08:00)
[2022-12-10] MEDS ORDERED: VANCOMYCIN 1,000 MG VIAL ONE (09:16)
--- NOTE | 2022-12-10 13:09 | NUR ---
MD made aware of BP. Pt still recieving IV bolus. Temp is improving.
--- NOTE | 2022-12-10 14:18 | NUR ---
Report given to DEDE Newman at [facility] [phone]
--- NOTE | 2022-12-10 14:18 | NUR ---
[facility] AT BEDSIDE FOR TRANSPORT
--- NOTE | 2022-12-10 14:30 | NUR ---
Pt transported to [facility] by [facility]. Pt in stable condition. Recieving RN Cat made aware of temp, bp, and respiratory rates while here. VSS, no ss of acute distress, breathing equal and unlabored, non verbal (normal for patient). Pt cleaned prior to leaving.
[2022-12-10 15:34] VITALS: BP 132/72
== END 2022-12-10 15:34 | disposition short-term general hospital (02) ==
LOC: MED 00:30
DX: A41.9 Sepsis, unspecified organism (principal); Z20.822 Contact with and (suspected) exposure to COVID-19; R65.20 Severe sepsis without septic shock; R41.82 Altered mental status, unspecified; F03.90 Unspecified dementia, unspecified severity, without behavioral disturbance, psychotic disturbance, mood disturbance, and anxiety; I10 Essential (primary) hypertension; I25.10 Atherosclerotic heart disease of native coronary artery without angina pectoris; E11.9 Type 2 diabetes mellitus without complications; E78.5 Hyperlipidemia, unspecified; Z86.73 Personal history of transient ischemic attack (TIA), and cerebral infarction without residual deficits; Z79.4 Long term (current) use of insulin; Z79.899 Other long term (current) drug therapy
CPT/HCPCS: 36415; 36600; 71045; 71260; 74177; 80053; 81003; 82550; 82803; 83605; 83880; 84484; 85025; 87040; 87086; 87186; 87426; 93005; 96365; 96367; 99291; J2543; J3370; Q0092; Q9967

== ENCOUNTER 2022-12-28 20:06 | Emergency (ER) | payer MEDICARE, OTHER ==
[~2022-12-28] VITALS: Ht 170.2 cm; Wt 90.7 kg
--- NOTE | 2022-12-28 20:09 | NUR ---
BIBA TO BED #8
--- NOTE | 2022-12-28 20:09 | NUR ---
PT BIBA [facility] ER BED 8
--- NOTE | 2022-12-28 20:13 | NUR ---
Patient being evaluated by physician at bedside.
[2022-12-28] MEDS ORDERED: NACL 0.9% 1,000 ML IV ONE (20:20)
[2022-12-28 20:22] VITALS: BP 153/81
--- NOTE | 2022-12-28 20:25 | NUR ---
XRAY AT BEDSIDE
[2022-12-28 21:02] LABS: APPEARANCE,URINE CLEAR (CLEAR); BILIRUBIN,URINE NEGATIVE (NEGATIVE); BLOOD, URINE TRACE-I (NEGATIVE); COLOR,URINE YELLOW (YELLOW); LEUKOCYTE ESTERASE ,URINE TRACE (NEGATIVE); NITRITE, URINE NEGATIVE (NEGATIVE); PH,URINE 7.5 (5.0-9.0); UGLUCOSE NEGATIVE (NEGATIVE)
[2022-12-28] MEDS ORDERED: PIPERACILLIN/TAZOBACTAM 3.375 GM in DEXTROSE 5% 50 ML IV ONE (21:20)
[2022-12-28] MEDS ORDERED: VANCOMYCIN 1,000 MG in DEXTROSE 5% 250 ML IV ONE (21:20)
[2022-12-28 21:21] LABS: RBC,URINE 0-5 /HPF (0-5); WBC,URINE 0-5 /HPF (0-5)
[2022-12-28 21:22] LABS: BASOPHILS % (AUTO) 0.2 % (0.0-2.0); EOSINOPHILS # (AUTO) 0.1 K/uL (0-0.4); EOSINOPHILS % (AUTO) 1.1 % (0.0-4.0); HEMOGLOBIN 9.7 g/dL (12.0-16.0); LYMPHOCYTES # (AUTO) 1.5 K/uL (2.5-16.5); LYMPHOCYTES % (AUTO) 24.7 % (20.5-51.1); MEAN CORPUSCULAR HEMOGLOBIN 29 pg (27-31); MEAN CORPUSCULAR HGB CONC 32 g/dL (33-37); MEAN CORPUSCULAR VOLUME 88.9 fL (80-94); MONOCYTES # (AUTO) 0.6 K/uL (0.8-1.0); MONOCYTES % (AUTO) 10.5 % (1.7-9.3); NEUTROPHILS # (AUTO) 3.9 K/uL (1.8-7.7); NEUTROPHILS % (AUTO) 63.5 % (42.2-75.2); PLATELET COUNT (AUTO) 271 K/uL (140-450); RED BLOOD CELL COUNT(AUTO) 3.38 MIL/uL (4.20-5.40); RED CELL DISTRIBUTION WIDTH 17.2 % (11.6-13.7); WHITE BLOOD COUNT (AUTO) 6.1 K/uL (4.8-10.8)
[2022-12-28 21:22] LABS: TRICHOMONAS,URINE None Seen /HPF (None Seen); YEAST,URINE None Seen /HPF (None Seen)
[2022-12-28] MEDS ORDERED: VANCOMYCIN 1,000 MG VIAL ONE (21:23)
[2022-12-28] MEDS ORDERED: PIPERACILLIN/TAZOBACTAM 3.375 GM VIAL IV ONE (21:23)
[2022-12-28 21:45] LABS: ALBUMIN 2.4 g/dL (3.4-5.0); ANION GAP 7.4 (8-16); ASPARTATE AMINOTRANSFERASE 18 U/L (15-37); CARBON DIOXIDE 35.1 mmol/L (21-32); CHLORIDE 108 mmol/L (98-107); CREATININE 0.5 mg/dL (0.6-1.3); GFR ARICAN-AMERICAN 159 mL/min (>90); GLUCOSE 101 mg/dL (74-106); SODIUM SERUM 148 mmol/L (136-145); TOTAL BILIRUBIN 0.3 mg/dL (0.0-1.0); UREA NITROGEN, BLOOD 19 mg/dL (7-18)
[2022-12-28 21:48] LABS: POTASSIUM 2.5 mmol/L (3.5-5.1)
[2022-12-28] MEDS ORDERED: POTASSIUM CHL 20 MEQ/NACL 0.9% 1,000 ML IV ONE (21:55)
[2022-12-28] MEDS ORDERED: POTASSIUM CHLORIDE 10 MEQ TABER PO ONE (21:55)
[2022-12-28] MEDS ORDERED: POTASSIUM CHL 40 MEQ/ D5-1/2NS 1,000 ML IV ONE (22:50)
--- NOTE | 2022-12-28 23:29 | NUR ---
BELONGINGS LIST COMPLETED
--- NOTE | 2022-12-29 00:47 | NUR ---
JOHNSON EXCHANGED PER HOSPITAL POLICY. NO COMPLICATIONS NOTED, 700 ML URINE IN OLD DRAINAGE BAG AND DISCARDED
--- NOTE | 2022-12-29 06:21 | NUR ---
[facility] AT BEDSIDE FOR TRANSPORT
[2022-12-29 06:26] VITALS: BP 143/81
--- NOTE | 2022-12-29 06:28 | NUR ---
Patient to be transferred to [facility]. Is being transferred due to INSURANCE REQUEST. Receiving facility has accepting physician and available space. ER physician has signed transfer form. Patient or responsible republican has agreed to transfer and signed form. Patient belongings inventoried and will be sent with patient. Copy of nursing notes, lab reports, EKG, Physicians Orders and X-rays to be sent with patient. Report called to JENNIFER MARTIN RN at receiving facility.
--- NOTE | 2022-12-30 10:44 | NUR ---
CONFIRMED WITH NURSE, NS INFUSION END TIME 212912/28/22.
--- NOTE | 2022-12-30 10:48 | NUR ---
CONFIRMED WITH NURSE, ZOSYN INFUSION END TIME 220212/28/22, VANCOMYCIN INFUSION COMPLETED AT 2222 SAME DAY, AND NS BOLUS COMPLETED AT 2327 SAME DAY.
== END 2022-12-29 06:28 | disposition short-term general hospital (02) ==
LOC: MED 20:06
DX: J18.1 Lobar pneumonia, unspecified organism (principal); Z20.822 Contact with and (suspected) exposure to COVID-19; E87.6 Hypokalemia; E11.9 Type 2 diabetes mellitus without complications; F03.90 Unspecified dementia, unspecified severity, without behavioral disturbance, psychotic disturbance, mood disturbance, and anxiety; I10 Essential (primary) hypertension; I20.2 Refractory angina pectoris; I25.2 Old myocardial infarction; Z86.73 Personal history of transient ischemic attack (TIA), and cerebral infarction without residual deficits; E78.5 Hyperlipidemia, unspecified; Z79.82 Long term (current) use of aspirin; Z79.899 Other long term (current) drug therapy; Z98.890 Other specified postprocedural states
CPT/HCPCS: 36415; 71045; 80053; 81001; 83605; 84484; 85025; 87040; 87086; 87426; 87804; 96361; 96365; 96367; 96368; 99291; J2543; J3370; J7030; Q0092

== ENCOUNTER 2023-03-09 19:16 | Inpatient (IN) | payer MEDICARE, OTHER ==
[~2023-03-09] VITALS: Ht 157.5 cm; Wt 71.7 kg
[~2023-03-09 19:16] MED LIST changes: +SIMV-373 GT; -SIMV40TA1 GT
--- NOTE | 2023-03-09 19:19 | NUR ---
BIBA TO BED #1
[2023-03-09 19:20] VITALS: BP 180/93
--- NOTE | 2023-03-09 19:20 | NUR ---
BIBA for SOB, N/V/D x 2 hrs. pmhx quadraplegic, multiple sclerosis, MD. NKA. pt with jose luis, nonverbal.
--- NOTE | 2023-03-09 19:36 | NUR ---
CT WAS AT THE BEDSIDE
[2023-03-09] MEDS ORDERED: NACL 0.9% 2,000 ML IV ONE (19:40)
--- NOTE | 2023-03-09 20:45 | NUR ---
NURSING CARE WAS PERFORMED. PT HAS URINE OUTPUT NOTED. NO BOWEL MOVEMENT NOTED.
[2023-03-09 20:47] LABS: BASOPHILS % (AUTO) 0.2 % (0.0-2.0); HEMATOCRIT 36.1 % (36-48); HEMOGLOBIN 11.3 g/dL (12.0-16.0); LYMPHOCYTES # (AUTO) 0.8 K/uL (2.5-16.5); MEAN CORPUSCULAR HEMOGLOBIN 27 pg (27-31); MEAN CORPUSCULAR HGB CONC 31 g/dL (33-37); MEAN CORPUSCULAR VOLUME 84.8 fL (80-94); MONOCYTES # (AUTO) 1.2 K/uL (0.8-1.0); MONOCYTES % (AUTO) 8.6 % (1.7-9.3); NEUTROPHILS # (AUTO) 11.9 K/uL (1.8-7.7); NEUTROPHILS % (AUTO) 85.2 % (42.2-75.2); PLATELET COUNT (AUTO) 389 K/uL (140-450); RED BLOOD CELL COUNT(AUTO) 4.26 MIL/uL (4.20-5.40); RED CELL DISTRIBUTION WIDTH 16.7 % (11.6-13.7)
--- NOTE | 2023-03-09 21:06 | NUR ---
JOHNSON WAS INTERTED. PT TOLERATED WELL
[2023-03-09 21:39] LABS: ALBUMIN 2.2 g/dL (3.4-5.0); ANION GAP 15.8 (8-16); CARBON DIOXIDE 26.8 mmol/L (21-32); CREATININE 1.2 mg/dL (0.6-1.3); POTASSIUM 3.6 mmol/L (3.5-5.1); TOTAL BILIRUBIN 0.2 mg/dL (0.0-1.0)
[2023-03-09 21:45] LABS: APPEARANCE,URINE CLOUDY (CLEAR); COLOR,URINE YELLO (YELLOW)
[2023-03-09] MEDS ORDERED: cefTRIAXone 1,000 MG VIAL ONE (21:45)
[2023-03-09 21:47] LABS: LEUKOCYTE ESTERASE ,URINE 3+ (NEGATIVE); NITRITE, URINE POSITIVE (NEGATIVE)
[2023-03-09 21:48] LABS: BILIRUBIN,URINE NEGATIVE (NEGATIVE); UGLUCOSE NEGATIVE (NEGATIVE)
[2023-03-09 21:49] LABS: BLOOD, URINE 2+ (NEGATIVE); RBC,URINE 11-20 (MOD) /HPF (0-5); WBC,URINE 20-60 /HPF (0-5)
[2023-03-09] MEDS ORDERED: ACETAMINOPHEN 650 MG SUPP RC ONE (22:00)
[2023-03-09] MEDS ORDERED: VITC500 PO (23:47)
--- NOTE | 2023-03-10 00:32 | NUR ---
patient is resting on the bed. no acute distress noted.
[2023-03-10] MEDS: NACL 0.9% 1,000 ML IV SCH ×2 (01:00→12:16)
--- NOTE | 2023-03-10 01:30 | NUR ---
[facility]. PATIENT IS NON VERBAL, QUAD AND CONTRACTED. PIV INTACT AND PATENT, NO DISTRESS NOTED
--- NOTE | 2023-03-10 01:30 | NUR ---
Patient will be admitted to care of JESS. Admited to telemerty . Will go to room 126 B. Belongings list completed. Report to [place].
[2023-03-10 04:00] VITALS: BP 114/59
--- NOTE | 2023-03-10 05:45 | NUR ---
TEXTED MD TO CLARIFY DIET. PATIENT IS GTUBE DEPENDENT , AWAITING RESPONSE
[2023-03-10 06:08] LABS: ANION GAP 13.3 (8-16); CREATININE 0.8 mg/dL (0.6-1.3); POTASSIUM 3.3 mmol/L (3.5-5.1)
[2023-03-10 06:31] LABS: BASOPHILS % (AUTO) 0.3 % (0.0-2.0); EOSINOPHILS % (AUTO) 0.2 % (0.0-4.0); HEMATOCRIT 34.7 % (36-48); HEMOGLOBIN 10.9 g/dL (12.0-16.0); LYMPHOCYTES # (AUTO) 1.7 K/uL (2.5-16.5); MEAN CORPUSCULAR HEMOGLOBIN 27 pg (27-31); MEAN CORPUSCULAR HGB CONC 32 g/dL (33-37); MEAN CORPUSCULAR VOLUME 84.9 fL (80-94); MONOCYTES # (AUTO) 0.9 K/uL (0.8-1.0); NEUTROPHILS # (AUTO) 6.6 K/uL (1.8-7.7); NEUTROPHILS % (AUTO) 71.5 % (42.2-75.2); PLATELET COUNT (AUTO) 282 K/uL (140-450); RED BLOOD CELL COUNT(AUTO) 4.08 MIL/uL (4.20-5.40); RED CELL DISTRIBUTION WIDTH 16.7 % (11.6-13.7); WHITE BLOOD COUNT (AUTO) 9.3 K/uL (4.8-10.8)
--- NOTE | 2023-03-10 08:00 | NUR ---
NURSES NOTE PATIENT RECEIVED AT BED [place] , A/OX0 , NON VERBAL , SINUS RHYTHM ON MONITOR , BEDBOUND ON DEPENDENT GASTRIC TUB FEEDING , SKIN INTACT , LOWER EXTREMITY CONTRACTED , QUADRIPLEGIA ON NASAL CANNULA 2 LITER O2 ,WITH JOHNSON CATHETER , INCONTINENT X2 , ON IVB FLUID 80CC/H , NO COMPLAIN AT THIS TIME , PT STILL UNDER OBSERVE .
[2023-03-10 09:01] VITALS: BP 132/77
--- NOTE | 2023-03-10 09:06 | NUR ---
PATIENT HAS BEEN SCREENED AND CATEGORIZED HIGH NUTRITION RISK. PATIENT WILL BE SEEN WITHIN 1-2 DAYS OF ADMISSION. [facility] REFERRAL RECEIVED FOR TUBE FEEDING ON 03/10/23. REVIEWED BY LILIA STEWARD RD
[2023-03-10] MEDS ORDERED: LORazepam 1 MG TAB GT PRN (10:15)
[2023-03-10] MEDS ORDERED: LACTULOSE 20 GM/30 ML UDC GT PRN (10:15)
[2023-03-10] MEDS ORDERED: ALBUTEROL SULFATE/IPRATROPIU 3 ML SOL IH PRN (10:15)
[2023-03-10] MEDS ORDERED: MAG SULF 2000 MG/WATER PREMIX 50 ML IV PRN (10:15)
[2023-03-10] MEDS ORDERED: POTASSIUM CHLORIDE 20% 40 MEQ/15 ML UDC GT PRN (11:00)
--- NOTE | 2023-03-10 11:37 | NUR ---
NURSES NOTE PATIENT STYARTED ON FEEDING TUB GLUCERNA 1.2 60CC WITH HO2 100CC/H
--- NOTE | 2023-03-10 11:48 | NUR ---
PT. WITH LOW KARLA SCALE AT HIGH RISK, CONTINUE TO FOLLOW PRESSURE INJURY PREVENTION INTERVENTIONS. -POSITIONING: TURN AND REPOSITION PATIENT Q 2H OR SOONER USE PILLOWS TO KEEP BONY PROMINENCES FROM DIRECT CONTACT WITH SURFACES USE REPOSITIONING WEDGES TO PROVIDE 30-DEGREE ANGLE FOR SIDE LYING POSITIONS OFFLOADING OR FOAM DRESSING TO ALL TUBING TO PREVENT MEDICAL DEVICES RELATED PRESSURE INJURY -RE-EVALUATING AND MANAGING INCONTINENCE MONITOR SKIN CONDITION DURING POSITION CHANGE DO NOT MASSAGE REDNESS, BONY PROMINENCES FREQUENT DAYNA-CARE AND PROVIDE BARRIER CREAMS PRN IF SOILING MOISTURE CONTROL BY OFFER BED BACA/URINAL /ABSORBENT PAD TO WICK AND HOLD MOISTURE KEEP SKIN DRY AND PROTECT FROM FRICTION -MANAGE FRICTION/SHEAR/MOBILITY KEEP HOB AT THE LOWEST LEVEL OF ELEVATION NO MORE THAN 30 DEGREE UNLESS OTHERWISE CONTRAINDICATED USE LIFT SHEET OR TRANSFER DEVICE TO MOVE PATIENT AND PREVENT LATERAL SHEER. PROTECT HEELS, ELBOWS BONY PROMINENCES WITH SKIN BERRIES OR FOAM DRESSING IF EXPOSED TO FRICTION OFFLOAD BILATERAL HEELS BY PLACING PILLOWS UNDER CALVES AT ALL TIMES, UNLESS OTHERWISE CONTRAINDICATED -PRESSURE REDISTRIBUTION SURFACE THERAPY JAIRO ISOFLEX MATTRESS -NUTRITION: PLEASE FOLLOW RD RECOMMENDATIONS AND OFFER NUTRITION SUPPLEMENTS IF ORDERED. PLEASE CONTACT WOUND CARE NURSE FOR ANY QUESTION AND CHANGE OF WOUND CONDITION.
[2023-03-10] MEDS: BACLOFEN 10 MG TAB GT SCH ×2 (12:16→16:14)
[2023-03-10] MEDS: PIPERACILLIN/TAZOBACTAM 3.375 GM in DEXTROSE 5% 50 ML IV SCH ×2 (12:18→21:00)
--- NOTE | 2023-03-10 12:25 | NUR ---
ATTEMPTED TO TECH PT HOW TO PREFORM THE INCENTIVE SPIROMETER BUT PT WAS UNABLE TO PREFORM. PT IS UNABLE TO FOLLOW COMMANDS AT THIS TIME. NO DISTRESS NOTED. PT IS LAYING COMFORTABLY WITH 2L NC. WILL CONTINUE TO MONITOR.
[2023-03-10 12:33] VITALS: BP 143/67
[2023-03-10] MEDS ORDERED: PHENYTOIN GT SCH (13:00)
[2023-03-10] MEDS ORDERED: ACETAMINOPHEN EXTRA STRENGTH 500 MG TAB GT PRN (13:00)
--- NOTE | 2023-03-10 14:38 | NUR ---
NURSES NOTE PATIENT TOLERANT FEEDING TUBE , STILL ON IV FLUID , STILL HAS JOHNSON CATHETER STILL UNDER OBSERVE .
--- NOTE | 2023-03-10 14:55 | NUR ---
03/10/23 RD INITIAL ASSESSMENT COMPLETED PLEASE REFER TO NUTRITION ASSESSMENT UNDER CARE ACTIVITY FOR ESTIMATED NUTRITIONAL NEEDS. 1. RECOMMEND SWITCHING TF FORMULA TO OSMOLITE 1.5 PER PTS PREVIOUS TF ORDER AT GOAL RATE OF 40 ML/HR, FWF 150 ML Q6H TOLERATED - PROVIDES 960 ML TOTAL VOLUME, 1440 KCAL, 59 GM PROTEIN AND 1331 ML FREE WATER DAILY MEETING 94% ESTIMATED KCAL NEEDS AND 97% ESTIMATED PROTEIN NEEDS; ADEQUATE - START TF AT 2O ML/HR INCREASE BY 2O ML Q4H UNTIL GOAL IS REACHED TOLERATED 2. MONITOR GI SYMPTOMS, GASTRIC RESIDUALS AND NUTRITION RELATED LAB VALUES 3. CONSULT RD PRN 4. RD TO FOLLOW-UP 2-3 DAYS, HIGH RISK REVIEWED BY LILIA STEWARD RD
[2023-03-10] MEDS: PHENYTOIN 100 MG/4 ML UDC GT SCH ×2 (16:13→21:00)
[2023-03-10 16:27] VITALS: BP 143/65
[2023-03-10] MEDS: NYSTATIN CRE 100 MU/GM 15 GM TUBE TP SCH (16:37)
--- NOTE | 2023-03-10 18:32 | NUR ---
UPDATE ON PATIENT PATIENT POSSIBLE TRANSFER TO [facility] NURSES NOTE PATIENT RECEIVED AT BED [place] , A/OX0 , NON VERBAL , SINUS RHYTHM ON MONITOR , BEDBOUND ON DEPENDENT GASTRIC TUB FEEDING , SKIN INTACT , LOWER EXTREMITY CONTRACTED , QUADRIPLEGIA ON NASAL CANNULA 2 LITER O2 ,WITH JOHNSON CATHETER , INCONTINENT X2 , ON IVB FLUID 80CC/H , NO COMPLAIN AT THIS TIME , PT STILL UNDER OBSERVE .
--- NOTE | 2023-03-10 19:16 | NUR ---
REPORT GIVEN TO NIGHT NURSE , ALL HER QUESTION ANSWERED
--- NOTE | 2023-03-10 19:30 | NUR ---
PM NURSING NARRATIVE (OPENING) 1930 HAND-OFF REPORT RECEIVED FROM ASHLY AGUAYO. FOR CONTINUITY OF CARE. C/C N/V AND SOB. DX: SEPSIS, UTI, DEHYDRATION. HX: MS, CO, QUADRIPLEGIC, GT DEPENDANT. GTUBE RATE 60ML/H WITH H2O FLUSH 100ML/Q6H. JOHNSON TO GRAVITY FLOW. REPORTED: DNR STATUS. PT RECEIVED STATED ABOVE. EYES OPEN SPONTANEOUSLY. GIVEN MEDS ORDERED. MONITOR AND ASSIST WITH COMFORT MEASURES.
[2023-03-10 20:00] VITALS: BP 154/82
[2023-03-10] MEDS: ALBUTEROL SULFATE/IPRATROPIU 3 ML SOL IH SCH (20:03)
[2023-03-10] MEDS ORDERED: CHLORHEXIDINE GLUCONATE MM SCH (21:00)
--- NOTE | 2023-03-11 01:25 | NUR ---
TROPONIN 230. TRENDING DOWN, NOT NOTIFIED, Addendum: 03/11/23 at 0402 by Agency 08 DEDE AGUAYO DISREGARD THIS ENTRY. WRONG CHART
[2023-03-11] MEDS: SIMVASTATIN 40 MG TAB GT SCH ×2 (02:58→21:40)
[2023-03-11 06:05] LABS: BASOPHILS % (AUTO) 0.2 % (0.0-2.0); EOSINOPHILS # (AUTO) 0.2 K/uL (0-0.4); EOSINOPHILS % (AUTO) 3.5 % (0.0-4.0); HEMATOCRIT 32.3 % (36-48); HEMOGLOBIN 10.2 g/dL (12.0-16.0); LYMPHOCYTES # (AUTO) 1.2 K/uL (2.5-16.5); LYMPHOCYTES % (AUTO) 17.7 % (20.5-51.1); MEAN CORPUSCULAR HEMOGLOBIN 27 pg (27-31); MEAN CORPUSCULAR HGB CONC 32 g/dL (33-37); MEAN CORPUSCULAR VOLUME 84.9 fL (80-94); MONOCYTES # (AUTO) 0.5 K/uL (0.8-1.0); MONOCYTES % (AUTO) 6.7 % (1.7-9.3); NEUTROPHILS # (AUTO) 4.9 K/uL (1.8-7.7); NEUTROPHILS % (AUTO) 71.9 % (42.2-75.2); PLATELET COUNT (AUTO) 302 K/uL (140-450); RED CELL DISTRIBUTION WIDTH 16.9 % (11.6-13.7); WHITE BLOOD COUNT (AUTO) 6.8 K/uL (4.8-10.8)
[2023-03-11] MEDS: PIPERACILLIN/TAZOBACTAM 3.375 GM in DEXTROSE 5% 50 ML IV SCH ×3 (06:16→21:50)
[2023-03-11 07:09] LABS: ANION GAP 16.8 (8-16); CARBON DIOXIDE 24.1 mmol/L (21-32); CREATININE 0.8 mg/dL (0.6-1.3); POTASSIUM 3.9 mmol/L (3.5-5.1)
[2023-03-11 07:22] LABS: MAGNESIUM 2.2 mg/dL (1.8-2.4); PHOSPHORUS 2.7 mg/dL (2.5-4.9)
--- NOTE | 2023-03-11 07:30 | NUR ---
PM NURSING NARRATIVE (CLOSING) ENDORSED TO ONCOMING RN JOSE ARMANDO. UNEVENTFUL SHIFT. ENDORSED THAT MD NOTES STATES TO THE CONTRARY THAT PT STATUS FOR THIS VISIT DISCUSSED WITH FAMILY AND IS "FULL CODE FOR THIS VISIT" NOT DNR STATUS IS BEING VERBALLY REPORTED FROM NURSE TO NURSE. PLEASE ENDORSE SUCH FROM SHIFT TO SHIFT. CHART COVER MARKED SUCH. RELINQUISHED CARE OF PT AT THIS TIME.
[2023-03-11] MEDS: NACL 0.9% 1,000 ML IV SCH (07:53)
[2023-03-11 08:00] VITALS: BP 133/48
[2023-03-11] MEDS ORDERED: DOCUSATE 100 MG/10 ML UDC GT SCH (09:00)
[2023-03-11] MEDS ORDERED: MULTIVIT MINERALS GT SCH (09:00)
[2023-03-11] MEDS ORDERED: FERROUS GLUC GT SCH (09:00)
[2023-03-11] MEDS ORDERED: MULTIVITAMIN/MINERALS 15 ML UDBTL GT SCH (09:00)
[2023-03-11] MEDS ORDERED: CHOLECALCIFEROL 1,000 IU TAB GT SCH (09:00)
[2023-03-11] MEDS ORDERED: METOPROLOL 25 MG TAB GT SCH (09:00)
[2023-03-11] MEDS ORDERED: levETIRAcetam 100 MG/ML ORASYR GT SCH (09:00)
[2023-03-11] MEDS ORDERED: NON-FORMULARY ITEM (Cholecalciferol (Vitamin D3) (Vitamin D3) 1,000 IU) GT SCH (09:00)
[2023-03-11] MEDS ORDERED: lisinopriL 10 MG TAB GT SCH (09:00)
[2023-03-11] MEDS ORDERED: ASCORBIC ACID 500 MG/5 ML ORASYR GT SCH (09:00)
[2023-03-11] MEDS ORDERED: ASPIRIN 81 MG TAB.CHEW PEG SCH (09:00)
[2023-03-11] MEDS: PHENYTOIN 100 MG/4 ML UDC GT SCH ×4 (09:18→21:40)
[2023-03-11] MEDS: BACLOFEN 10 MG TAB GT SCH ×3 (09:20→17:31)
[2023-03-11] MEDS: NYSTATIN CRE 100 MU/GM 15 GM TUBE TP SCH ×3 (09:34→17:31)
[2023-03-11] MEDS: ALBUTEROL SULFATE/IPRATROPIU 3 ML SOL IH SCH ×2 (09:42→14:44)
--- NOTE | 2023-03-11 11:18 | NUR ---
DC PLANNING [facility] WAS UPDATED THAT PATIENT IS STABLE FOR TRANSFER 03/10/23.PRASHANTH ARCOS SPOKE WITH LAURO [phone] AND [facility] WAS FAXED.CALLED AGAIN TO ASK ABOUT BED AVAILABILITY AND SPOKE WITH MARLYN. Addendum: 03/11/23 at 1641 by MARINA LINDA CM DC PLANNING NA LEVEL GOING UP [phone]).IVF CHANGED TO D5W.[facility] FOLLOWING. Addendum: 03/11/23 at 1643 by MARINA LINDA CM DC PLANNING LATE ENTRY AUTH # [id number] GIVEN BY LAURO AT [facility]
[2023-03-11 12:00] VITALS: BP 146/70
[2023-03-11] MEDS ORDERED: DEXTROSE 5% 1,000 ML IV SCH (14:25)
[2023-03-11 16:00] VITALS: BP 138/68
[2023-03-11 20:00] VITALS: BP 122/62
--- NOTE | 2023-03-11 22:57 | NUR ---
PER [facility] STAFF NAMED SUNG PT WILL TRANSFER TONIGHT AT [facility] ROOM [address] SHWETA Handley PER SUNG GIVE REPORT TO NURSE W/ TE;L NUMBER [phone] . PER SUNG THE PT WILL CHARGE NURSE BY HALLIE HOWELL . AT ESTIMATED CHARGE NURSE TIME 2345 TONIGHT .
--- NOTE | 2023-03-11 22:59 | NUR ---
REPORT GIVEN TO NASREEN
[2023-03-11 23:04] VITALS: BP 133/62
[2023-03-11 23:55] VITALS: BP 134/65
--- NOTE | 2023-03-11 23:55 | NUR ---
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 DISCHARGE PACKET AND CD GIVEN TO [facility] , WILL INFORM FAMILY ABOUT THE TRANSFER . Addendum: 03/12/23 at 0036 by Malou Judd RN INFORMED PT.'S RELATIVE PT ALREADY TRANSFERRED TO [place] [id number] VIA PHONE ANSWERING MACHINE . Addendum: 03/12/23 at 0041 by Malou Judd RN BY 2350 TEMP RE CHECK 98.9F PT IS HOT TO TOUCH BY FEBRILE , BIT TACHY 102 . Addendum: 03/12/23 at 0042 by Malou Judd RN THE WORD BIT SUBHASH IN THE ABOVE NURSE'S NOTE IS AN ERROR ENTRY , INSTEAD OF BIT TACHYCARDIC Addendum: 03/12/23 at 5 by Malou Judd RN AT 2352 D/C FEEDING TUBE , EMPTY URINE BAG W/ CLEAR URINE OUTPUT AT 800 CC . Addendum: 03/12/23 at 0108 by Malou Judd RN AT 2354 D/C IVF , PT TRANSFER W/ 2 IV SITES .
[2023-03-12] MEDS ORDERED: MAGNESIUM HYDROXIDE 2400 MG/30 ML UDC GT SCH (09:00)
[2023-03-12] MEDS ORDERED: bisacodyL 10 MG SUPP RC SCH (09:00)
== END 2023-03-11 23:55 | disposition short-term general hospital (02) | DRG 871 ==
LOC: MED 19:16 → MTU 03-10 00:23 → MMU 03-10 00:43
DX: A41.9 Sepsis, unspecified organism (principal); G82.50 Quadriplegia, unspecified; J18.9 Pneumonia, unspecified organism; N17.0 Acute kidney failure with tubular necrosis; J96.00 Acute respiratory failure, unspecified whether with hypoxia or hypercapnia; E87.0 Hyperosmolality and hypernatremia; E87.20 Acidosis, unspecified; J90 Pleural effusion, not elsewhere classified; N13.30 Unspecified hydronephrosis; N39.0 Urinary tract infection, site not specified; Z20.822 Contact with and (suspected) exposure to COVID-19; E86.0 Dehydration; K31.89 Other diseases of stomach and duodenum; D64.9 Anemia, unspecified; E11.65 Type 2 diabetes mellitus with hyperglycemia; I10 Essential (primary) hypertension; N20.0 Calculus of kidney; F03.90 Unspecified dementia, unspecified severity, without behavioral disturbance, psychotic disturbance, mood disturbance, and anxiety; R56.9 Unspecified convulsions; Z79.899 Other long term (current) drug therapy; Z86.73 Personal history of transient ischemic attack (TIA), and cerebral infarction without residual deficits; I25.2 Old myocardial infarction; Z79.82 Long term (current) use of aspirin; Z93.1 Gastrostomy status
CPT/HCPCS: 36415; 51702; 71045; 80048; 80053; 80185; 81001; 83605; 83735; 83880; 84100; 84484; 85025; 87040; 87070; 87081; 87086; 87205; 94640; 96365; 99291; J0696; J1644; J2543; J7060; Q0092